=== PATIENT | male | born 1970 | race Caucasian/White ===

== ENCOUNTER 2021-05-19 14:37 | Emergency (ER) | payer SELFPAY ==
[~2021-05-19] VITALS: Ht 175.2 cm; Wt 104.3 kg
[~2021-05-19 14:37] MED LIST: BACITRACIN 500U30 GM PO; BACTRIM DS 8001 TA1 PO; DIPROSONE0.05% TP; KEFLEX125 MG/5 M PO
[2021-05-19] MEDS ORDERED: Motrin,Rufen800 MG PO (17:56)
[2021-05-19] MEDS ORDERED: CYCLOBENZAPRINE5 M3 PO (17:56)
== END 2021-05-19 18:01 | disposition home or self-care (01) ==
LOC: ED 14:37
DX: R51.9 Headache, unspecified (principal)

== ENCOUNTER 2022-05-02 06:05 | Emergency (ER) | payer SELFPAY ==
[~2022-05-02] VITALS: Ht 172.7 cm; Wt 97.1 kg
[~2022-05-02 06:05] MED LIST changes: +CYCLOBENZAPRINE5 M3 PO; +Motrin,Rufen800 MG PO
[2022-05-02 06:38] LABS: BASO # 0.1 10*3/uL (0.0-0.1); BASO % 0.9 % (0.0-1.0); EOS # 0.2 10*3/uL (0.0-0.4); EOS % 2.7 % (1.0-4.0); HEMATOCRIT 45.3 % (42.0-52.0); LYMPH % 36.8 % (27.0-41.0); MEAN CELL VOLUME 88.6 fl (80.0-94.0); MEAN CORPUSCULAR HGB 30.1 pg (27.0-31.0); MEAN PLATELET VOLUME 10.1 fl (9.6-12.3); MONO # 0.9 10*3/uL (0.1-1.0); MONO % 10.9 % (3.0-9.0); NEUT % 48.5 % (47.0-73.0); PLATELET COUNT AUTOMATED 228 10*3/uL (130-400); RED BLOOD COUNT 5.11 10*6/uL (4.50-5.90); RED CELL DISTRI WIDTH 13.3 % (0-14.5); WHITE BLOOD COUNT 8.2 10*3/uL (4.8-10.8)
[2022-05-02 06:49] LABS: ACT PARTIAL THROMBO TIME 29.3 SECONDS (20.0-32.1)
[2022-05-02 06:54] LABS: ALKALINE PHOSPHATASE 109 U/L (45-117); BUN 20 mg/dl (7-24); CHLORIDE 108 mmol/L (98-107); POTASSIUM 4.2 mmol/L (3.5-5.1); SGOT/AST 18 IU/L (3-35); SGPT/ALT 43 U/L (12-78); SODIUM 137 mmol/L (136-145); TOTAL PROTEIN 7.3 gm/dL (6.4-8.2)
== END 2022-05-02 07:29 | disposition left against medical advice (07) ==
LOC: ED 06:05
PROVIDERS: Emergency Medicine
DX: R11.0 Nausea (principal); R61 Generalized hyperhidrosis; R03.0 Elevated blood-pressure reading, without diagnosis of hypertension; Z53.21 Procedure and treatment not carried out due to patient leaving prior to being seen by health care provider

== ENCOUNTER 2023-11-13 13:41 | Emergency (ER) | payer SELFPAY ==
[~2023-11-13] VITALS: Ht 175.2 cm; Wt 108.9 kg
[2023-11-13 14:41] LABS: BASO # 0.1 10*3/uL (0.0-0.1); BASO % 0.7 % (0.0-1.0); EOS # 0.1 10*3/uL (0.0-0.4); EOS % 0.7 % (1.0-4.0); HEMATOCRIT 46.1 % (42.0-52.0); LYMPH # 2.9 10*3/uL (1.3-4.4); LYMPH % 28.6 % (27.0-41.0); MEAN CELL VOLUME 89.5 fl (80.0-94.0); MEAN CORPUSCULAR HGB 30.1 pg (27.0-31.0); MEAN CORPUSCULAR HGB CONC 33.6 g/dl (33.0-37.0); MEAN PLATELET VOLUME 10.2 fl (9.6-12.3); MONO # 0.6 10*3/uL (0.1-1.0); MONO % 5.8 % (3.0-9.0); NEUT # 6.4 10*3/uL (2.3-7.9); PLATELET COUNT AUTOMATED 217 10*3/uL (130-400); RED BLOOD COUNT 5.15 10*6/uL (4.50-5.90); RED CELL DISTRI WIDTH 13.2 % (0-14.5)
[2023-11-13 14:58] LABS: ALKALINE PHOSPHATASE 109 U/L (46-116); BUN 12 mg/dl (9-23); CHLORIDE 106 mmol/L (98-107); LIPASE 33 U/L (12-53); POTASSIUM 4.1 mmol/L (3.4-5.1); SGPT/ALT 35 U/L (5-49); TOTAL PROTEIN 7.2 gm/dL (6.0-8.0)
[2023-11-13] MEDS ORDERED: TIZANIDINE HCL4 MG PO (16:43)
[2023-11-13] MEDS ORDERED: NAPROSYN500 MG PO (16:43)
== END 2023-11-13 17:19 | disposition home or self-care (01) ==
LOC: ED 13:41
PROVIDERS: Family Medicine
DX: M62.838 Other muscle spasm (principal); R10.11 Right upper quadrant pain; R19.7 Diarrhea, unspecified; Z98.890 Other specified postprocedural states; F17.210 Nicotine dependence, cigarettes, uncomplicated

== ENCOUNTER 2024-05-07 17:35 | Emergency (ER) | payer OTHER ==
[~2024-05-07 17:35] MED LIST changes: +NAPROSYN500 MG PO; +TIZANIDINE HCL4 MG PO
[2024-05-07] MEDS ORDERED: IBUPROFEN 400 MG TAB PO ONE (18:15)
[2024-05-07] MEDS ORDERED: ACETAMINOPHEN 325 MG TAB PO ONE (18:15)
[2024-05-07] MEDS ORDERED: LIDOCAINE 1 EA PATCH T ONE (18:20)
[2024-05-07] MEDS ORDERED: TYLENOL EXTRA500 MG PO (18:23)
[2024-05-07] MEDS ORDERED: Motrin,Rufen400 MG PO (18:23)
[2024-05-07] MEDS ORDERED: ASPERCREME LID1 EACH T (18:23)
== END 2024-05-07 19:14 | disposition home or self-care (01) ==
LOC: ED 17:35
DX: S13.4XXA Sprain of ligaments of cervical spine, initial encounter (principal); Z98.890 Other specified postprocedural states; V63.5XXA Driver of heavy transport vehicle injured in collision with car, pick-up truck or van in traffic accident, initial encounter; Y93.89 Activity, other specified; Y92.410 Unspecified street and highway as the place of occurrence of the external cause; Y99.8 Other external cause status

== ENCOUNTER 2024-05-09 15:12 | Emergency (ER) | payer OTHER ==
[~2024-05-09] VITALS: Ht 175.2 cm; Wt 108.9 kg
[~2024-05-09 15:12] MED LIST changes: +ASPERCREME LID1 EACH T; +Motrin,Rufen400 MG PO; +TYLENOL EXTRA500 MG PO
[2024-05-09] MEDS ORDERED: Ketorolac Tromethamine 15 MG/ML VIAL IM ONE (15:30)
[2024-05-09] MEDS ORDERED: methylPREDNISolone sod succ 125 MG VIAL IM ONE (15:30)
[2024-05-09] MEDS ORDERED: CYCLOBENZAPRINE5 M3 PO (18:34)
[2024-05-09] MEDS ORDERED: PREDNISONE50 MG PO (18:34)
[2024-05-09] MEDS ORDERED: Cyclobenzaprine Hydrochlorid 10 MG TAB PO ONE (18:35)
== END 2024-05-09 19:23 | disposition home or self-care (01) ==
LOC: ED 15:12
DX: S13.4XXA Sprain of ligaments of cervical spine, initial encounter (principal); S39.012A Strain of muscle, fascia and tendon of lower back, initial encounter; Z98.890 Other specified postprocedural states; V89.2XXA Person injured in unspecified motor-vehicle accident, traffic, initial encounter; Y93.89 Activity, other specified; Y92.410 Unspecified street and highway as the place of occurrence of the external cause; Y99.8 Other external cause status

== ENCOUNTER 2024-05-24 11:09 | Emergency (ER) | payer OTHER ==
[~2024-05-24] VITALS: Ht 175.2 cm; Wt 108.9 kg
[~2024-05-24 11:09] MED LIST changes: +PREDNISONE50 MG PO
[2024-05-24] MEDS ORDERED: Metoclopramide Hydrochloride 10 MG/2 ML AMP IV ONE (11:30)
[2024-05-24] MEDS ORDERED: diphenhydrAMINE hydrochloride 50 MG/ML VIAL IV ONE (11:30)
[2024-05-24] MEDS ORDERED: SODIUM CHLORIDE 0.9% 1,000 ML IV ONE (11:30)
[2024-05-24] MEDS ORDERED: Ketorolac Tromethamine 15 MG/ML VIAL IV ONE (11:30)
[2024-05-24 11:46] LABS: BASO # 0.1 10*3/uL (0.0-0.1); BASO % 0.6 % (0.0-1.0); EOS # 0.1 10*3/uL (0.0-0.4); EOS % 0.9 % (1.0-4.0); HEMATOCRIT 45.1 % (42.0-52.0); LYMPH # 3.1 10*3/uL (1.3-4.4); MEAN CELL VOLUME 91.1 fl (80.0-94.0); MEAN CORPUSCULAR HGB 30.1 pg (27.0-31.0); MONO # 0.8 10*3/uL (0.1-1.0); MONO % 7.7 % (3.0-9.0); NEUT # 5.7 10*3/uL (2.3-7.9); NEUT % 58.4 % (47.0-73.0); PLATELET COUNT AUTOMATED 196 10*3/uL (130-400); RED BLOOD COUNT 4.95 10*6/uL (4.50-5.90); RED CELL DISTRI WIDTH 13.3 % (0-14.5); WHITE BLOOD COUNT 9.7 10*3/uL (4.8-10.8)
[2024-05-24 12:09] LABS: ALKALINE PHOSPHATASE 116 U/L (46-116); BUN 16 mg/dl (9-23); CHLORIDE 107 mmol/L (98-107); POTASSIUM 4.1 mmol/L (3.4-5.1); SGPT/ALT 74 U/L (5-49); TOTAL PROTEIN 7.2 gm/dL (6.0-8.0)
[2024-05-24] MEDS ORDERED: REGLAN10 M1 PO (12:18)
[2024-05-24] MEDS ORDERED: IBU800 M1 PO (12:18)
== END 2024-05-24 12:24 | disposition home or self-care (01) ==
LOC: ED 11:09
PROVIDERS: Emergency Medicine
DX: R51.9 Headache, unspecified (principal); M54.2 Cervicalgia; Z98.890 Other specified postprocedural states

== ENCOUNTER 2025-07-19 16:12 | Emergency (ER) | payer SELFPAY ==
[~2025-07-19] VITALS: Ht 175.2 cm; Wt 108.9 kg
[~2025-07-19 16:12] MED LIST changes: +IBU800 M1 PO; +REGLAN10 M1 PO
[2025-07-19 16:57] LABS: BASO # 0.1 10*3/uL (0.0-0.1); BASO % 0.7 % (0.0-1.0); EOS # 0.1 10*3/uL (0.0-0.4); EOS % 0.9 % (1.0-4.0); MEAN CELL VOLUME 89.5 fl (80.0-94.0); MEAN CORPUSCULAR HGB 30.0 pg (27.0-31.0); MEAN PLATELET VOLUME 10.3 fl (9.6-12.3); MONO # 1.0 10*3/uL (0.1-1.0); MONO % 8.6 % (3.0-9.0); NEUT # 7.4 10*3/uL (2.3-7.9); NEUT % 61.8 % (47.0-73.0); NUCLEATED RED BLOOD CELL 0.0 % (0.0-0.0); NUCLEATED RED BLOOD CELL 0.0 10*3/uL (0.0-0.0); PLATELET COUNT AUTOMATED 217 10*3/uL (130-400); RED CELL DISTRI WIDTH 13.2 % (0-14.5)
[2025-07-19] MEDS ORDERED: ACETAMINOPHEN 100 ML IV ONE (17:10)
[2025-07-19] MEDS ORDERED: Ondansetron Hydrochloride 4 MG/2 ML VIAL IV ONE (17:10)
[2025-07-19] MEDS ORDERED: diphenhydrAMINE hydrochloride 50 MG/ML VIAL IV ONE (17:10)
[2025-07-19 17:11] LABS: ACT PARTIAL THROMBO TIME 28.1 SECONDS (20.0-32.1)
[2025-07-19] MEDS ORDERED: Dexamethasone Sodium Phospha 20 MG/5 ML VIAL IV ONE (17:15)
[2025-07-19 17:18] LABS: BUN 14 mg/dl (9-23)
== END 2025-07-19 18:15 | disposition home or self-care (01) ==
LOC: ED 16:12
PROVIDERS: Internal Medicine
DX: R51.9 Headache, unspecified (principal); R04.0 Epistaxis

== ENCOUNTER → 2025-10-19 | Outpatient (CLI) | payer BC | END | disposition home or self-care (01) | LOC: CT 08-12 15:00 | PROVIDERS: ATTEND Physician Assistant | DX: Z12.2 Encounter for screening for malignant neoplasm of respiratory organs (principal); F17.200 Nicotine dependence, unspecified, uncomplicated ==

== ENCOUNTER 2025-10-31 08:47 | Emergency (ER) | payer BC ==
[~2025-10-31] VITALS: Wt 106.6 kg
[2025-10-31 09:41] LABS: BASO # 0.1 10*3/uL (0.0-0.1); BASO % 0.9 % (0.0-1.0); EOS # 0.2 10*3/uL (0.0-0.4); EOS % 1.8 % (1.0-4.0); MEAN CELL VOLUME 90.9 fl (80.0-94.0); MEAN CORPUSCULAR HGB 30.2 pg (27.0-31.0); MEAN PLATELET VOLUME 9.8 fl (9.6-12.3); MONO # 0.8 10*3/uL (0.1-1.0); MONO % 9.1 % (3.0-9.0); NEUT # 4.5 10*3/uL (2.3-7.9); NEUT % 52.9 % (47.0-73.0); NUCLEATED RED BLOOD CELL 0.0 % (0.0-0.0); NUCLEATED RED BLOOD CELL 0.0 10*3/uL (0.0-0.0); PLATELET COUNT AUTOMATED 227 10*3/uL (130-400); RED CELL DISTRI WIDTH 13.5 % (0-14.5)
[2025-10-31 10:00] LABS: BUN 14 mg/dl (9-23)
== END 2025-10-31 13:44 | disposition home or self-care (01) ==
LOC: ED 08:47
PROVIDERS: Student in an Organized Health Care Education/Training Program
DX: R07.89 Other chest pain (principal); R11.0 Nausea